=== PATIENT | female | born 1960 | race Caucasian/White ===

== ENCOUNTER 2018-05-27 12:06 | Emergency (ER) | payer OTHER ==
[~2018-05-27] VITALS: Ht 165.1 cm; Wt 59.0 kg
[2018-05-27] MEDS ORDERED: IRBESARTAN-HCT1 EAC1 PO (12:24)
[2018-05-27] MEDS ORDERED: XOPENEX0.63 MG/3 IH (12:25)
[2018-05-27] MEDS ORDERED: SYMBICORT 16010.2 GM IH (12:25)
== END 2018-05-27 19:08 | disposition home or self-care (01) ==
LOC: ER 12:06
DX: B34.9 Viral infection, unspecified (principal); J40 Bronchitis, not specified as acute or chronic; R05 Cough; R51 Headache; J11.1 Influenza due to unidentified influenza virus with other respiratory manifestations

== ENCOUNTER → 2018-10-31 | Emergency (ER) | payer OTHER ==
[~2018-10-31] VITALS: Ht 165.1 cm; Wt 59.0 kg
[~2018-10-31] MED LIST: IRBESARTAN-HCT1 EAC1 PO; LEVSIN/SL0.125 MG SL; PEPCID40 MG PO; SYMBICORT 16010.2 GM IH; XOPENEX0.63 MG/3 IH; ZOFRAN ODT8 MG PO
== END | disposition home or self-care (01) ==
LOC: ER 18:57
DX: K52.9 Noninfective gastroenteritis and colitis, unspecified (principal)

== ENCOUNTER 2019-03-18 14:11 | Emergency (ER) | payer OTHER ==
[~2019-03-18] VITALS: Ht 165.1 cm; Wt 59.0 kg
[2019-03-18] MEDS ORDERED: COZAAR50 MG PO (14:32)
[2019-03-18] MEDS ORDERED: PREDNISONE10 MG PO (21:04)
[2019-03-18] MEDS ORDERED: VALIUM PO (21:04)
== END 2019-03-18 21:20 | disposition home or self-care (01) ==
LOC: ER 14:11
DX: M79.662 Pain in left lower leg (principal)

== ENCOUNTER 2019-04-24 09:35 | Day surgery (SDC) | payer OTHER ==
[~2019-04-24 09:35] MED LIST changes: +COZAAR50 MG PO; +PREDNISONE10 MG PO; +VALIUM PO
== END 2019-04-24 16:20 | disposition home or self-care (01) ==
LOC: AMB-ENDOS 09:35
DX: K64.8 Other hemorrhoids (principal); Z12.11 Encounter for screening for malignant neoplasm of colon

== ENCOUNTER 2019-10-17 00:45 | Emergency (ER) | payer OTHER ==
[~2019-10-17] VITALS: Ht 165.1 cm; Wt 59.0 kg
[2019-10-17] MEDS ORDERED: CLONAZEPAM0.5 MG (00:54)
== END 2019-10-17 13:37 | disposition home or self-care (01) ==
LOC: ER 00:45
DX: K52.89 Other specified noninfective gastroenteritis and colitis (principal); R10.84 Generalized abdominal pain